=== PATIENT | female | born 1960 | race African-American/Black ===

== ENCOUNTER 2016-07-25 23:15 | Emergency (ER) | payer OTHER ==
[~2016-07-25] VITALS: Ht 154.9 cm; Wt 81.6 kg
[~2016-07-25 23:15] MED LIST: ASPIRIN81 M1 PO; LOPRESSOR50 MG PO; NITROGLYCE0.4 MG/Act SL; ORETIC25 MG PO; VENTOLIN H0.09 MG/Ac IH; ZOCOR10 MG PO
[2016-07-25 23:22] VITALS: BP 148/75
--- NOTE | 2016-07-26 00:13 | NUR ---
PATIENT AMBULATED TO ER BED 3.
--- NOTE | 2016-07-26 00:36 | NUR ---
PATIENT BEING EVALUATED BY DR. LOPEZ.
[2016-07-26] MEDS ORDERED: KETOROLAC 60 MG/2 ML VIAL IM ONE (00:55)
[2016-07-26 01:20] VITALS: BP 132/67
--- NOTE | 2016-07-26 01:20 | NUR ---
Patient discharged with v/s stable. Written and verbal after care instructions given and explained. Patient verbalized understanding. Ambulatory with steady gait. All questions addressed prior to discharge. Advised to follow up with PMD.
== END 2016-07-26 01:20 | disposition home or self-care (01) ==
LOC: MED 23:15
DX: S13.4XXA Sprain of ligaments of cervical spine, initial encounter (principal); M25.511 Pain in right shoulder; J45.909 Unspecified asthma, uncomplicated; I50.9 Heart failure, unspecified; I10 Essential (primary) hypertension; Z88.0 Allergy status to penicillin; V89.2XXA Person injured in unspecified motor-vehicle accident, traffic, initial encounter; Y93.89 Activity, other specified; Y92.89 Other specified places as the place of occurrence of the external cause; Y99.8 Other external cause status
CPT/HCPCS: 96372; 99283; J1885